=== PATIENT | male | born 2000 | race Two or more races ===

== ENCOUNTER 2018-08-13 15:59 | Emergency (ER) | payer OTHER ==
[~2018-08-13] VITALS: Ht 182.9 cm; Wt 81.6 kg
--- NOTE | 2018-08-13 16:00 | NUR ---
ED Nurse Note: pt walked in w/ lac on right hand-thumb pt states he accidentally cut his hand with glass at work, cms intact, cap refill <3sec , will cont monitor.
[2018-08-13 16:38] VITALS: BP 107/63
--- NOTE | 2018-08-13 16:44 | Emergency Room Report ---
History of Present Illness General Chief Complaint: Laceration Source: Patient Present Illness HPI 17-year-old male presents to the emergency department complaining of laceration with bleeding to localized area of the right palm which she sustained while cleaning a window which broke approximately one hour prior to arrival. Patient denies taking blood thinning medications he states he is not sure whether or not he is up-to-date with his tetanus vaccination. He reports pain is exacerbated with palpation or movements of the right hand. Patient denies loss of gross motor movements or sensation in the affected extremity. Patient denies paresthesias. Allergies: Coded Allergies: No Known Allergies (Unverified , 08/13/18) Patient History Past Medical History: see triage record Past Surgical History: none Pertinent Family History: none Reviewed Nursing Documentation: PMH: Agreed; PSxH: Agreed Nursing Documentation-PMH Past Medical History: No Stated History Review of Systems All Other Systems: negative except mentioned in HPI Physical Exam Vital Signs Date Time Temp Pulse Resp B/P (MAP) Pulse Ox O2 Delivery O2 Flow Rate FiO2 08/13/18 16:03 98.2 66 21 107/63 98 Room Air Medical Decision Making PA Attestation Dr. Galeana is my supervising physician whom pt. management has been discussed with. Diagnostic Impression: Primary Impression: Laceration ER Course 17-year-old male presents to the emergency department complaining of laceration with bleeding to localized area of the right palm which she sustained while cleaning a window which broke approximately one hour prior to arrival. Patient denies taking blood thinning medications he states he is not sure whether or not he is up-to-date with his tetanus vaccination. He reports pain is exacerbated with palpation or movements of the right hand. Patient denies loss of gross motor movements or sensation in the affected extremity. Patient denies paresthesias. Ddx considered but are not limited to laceration, tendon injury, cellulitis, amputation Vital signs: are WNL, pt. is afebrile H&PE are most consistent with: [ ] laceration approx [ ] cm in length ORDERS: none required at this time, the diagnosis is clinical ED INTERVENTIONS: -Tetanus vaccine was administered as pt. vaccination status was unknown. - The wound was copiously irrigated with normal saline, and explored for foreign body for which no FB was found. - pt. is anesthetized with 1%lidocaine w. epi. [ ] deep vycril matress sutures were used to approximate the underlying subcutaneous fat of the open wound. - The wound was approximated and closed using [ ] interrupted [ ] Prolene sutures. -Bacitracin and sterile dressing is applied. Discussed with patient: That we make every effort to approximate the laceration as best as we can so that scarring will be as cosmetically pleasing as possible with our limited cosmetic skill set in the Emergency dept. Regardless of our best efforts there will be scarring after laceration repair. The extent of scarring is unknown at this time. DISCHARGE: At this time pt. is stable for d/c to home. Will provide printed patient care instructions, and any necessary prescriptions. Care plan and follow up instructions have been discussed with the patient prior to discharge. Last Vital Signs Date Time Temp Pulse Resp B/P (MAP) Pulse Ox O2 Delivery O2 Flow Rate FiO2 08/13/18 16:38 98.2 66 16 107/63 100 Room Air Disposition: HOME, SELF-CARE Condition: Stable Departure Forms: Return to Work Return to Work Date: Aug 16, 2018 Work Restrictions: No Heavy Lifting Other Restrictions: limited use of right hand x 1 week. Return to Full Activity: August 20, 2018 Patient Instructions: Laceration Care, Adult Additional Instructions: Take medications as directed. SUTURES TO BE REMOVED IN 10-14 DAYS Follow up with a Primary Care Provider in 3-5 days, even if your symptoms have resolved. --Please review list of primary care clinics, if you do not already have a primary care provider Return sooner to ED if new symptoms occur, or current symptoms become worse. - Please note that this Emergency Department Report was dictated using [employer] carp[employer] technology software, occasionally this can lead to erroneous entry secondary to interpretation by the dictation equipment. Génesis Orlando Aug 13, 2018 16:44
[2018-08-13] MEDS ORDERED: Lidocaine 2% 20mg/ml/EPI 0.01mg/ml 20ml INJ ONE (16:45)
[2018-08-13] MEDS ORDERED: Tetanus/Diptheria/Pertussis IM ONE (17:00)
[2018-08-13] MEDS ORDERED: HYDROcodone/Acetamin 5/325 tab ORAL ONE (17:00)
[2018-08-13] MEDS ORDERED: BACITRACIN-P28.35 GM TP (18:07)
[2018-08-13] MEDS ORDERED: CEPHALEXIN500 MG ORAL (18:07)
[2018-08-13 18:36] VITALS: BP 104/65
--- NOTE | 2018-08-13 18:38 | NUR ---
ED Nurse Note: Plastic surgeon at bedside and performed sutures on the right hand and covered it dressing. MD given instruction on how to take care of the wound. Patient is being discharged from medical care. Patient awake, alert, oriented x 4. D/C instruction and prescriptions given to patient. Patient ambulated out with steady gait.
--- NOTE | 2018-08-15 22:30 | Consultation ---
DATE OF CONSULTATION: 08/13/2018 PLASTIC SURGERY CONSULTATION CONSULTING PHYSICIAN: Dakota Caldwell M.D. CHIEF COMPLAINT: Right palm laceration. HISTORY OF PRESENT ILLNESS: The patient is a 17-year-old right-hand dominant male who suffered a laceration to the right hand at the base of the thumb. The patient reports that he was cleaning a window at work when the glass broke, sustaining a laceration to the palm of the right hand. The patient presented to [facility] following the injury. The patient was seen and evaluated by emergency physician and found to have an isolated injury to the right hand. Plastic surgery was consulted for further management. PAST MEDICAL HISTORY: None. PAST SURGICAL HISTORY: None. ALLERGIES: No known drug allergies. FAMILY HISTORY: Noncontributory. OCCUPATIONAL HISTORY: The patient works construction. REVIEW OF SYSTEMS: Negative except as mentioned in history of present illness. PHYSICAL EXAMINATION: VITAL SIGNS: Afebrile. Vital signs stable. GENERAL: Alert, awake, oriented x3. EXTREMITIES: Examination of the patient's right hand reveals 3 cm laceration on the palm at the base of the right thumb over the thenar eminence. It is a curvilinear laceration between the palmar crease and proximal thumb flexion crease. There is no active bleeding noted at this time. The thumb motion is intact throughout with intact flexion and extension, abduction, adduction, and thumb opposition. The flexor digitorum superficialis and flexor digitorum profundus tendons are intact throughout all digits. Sensation is intact throughout as well. IMAGING: X-ray of the right hand revealed no bony or joint abnormalities. There were no identified foreign bodies. ASSESSMENT: The patient is a 17-year-old right-hand dominant male with a laceration of the thenar eminence on the palmar surface of the right hand. The patient was informed about his injury and the indication for irrigation and suture repair of the right hand laceration site. PLAN: Irrigation of the right hand laceration site followed by suture closure. Please see procedure note for complete details. Following repair of the right palm laceration, the bandage dressing was applied. The patient was given antibiotics and instructed to follow up next week in clinic for re-evaluation. Dakota Caldwell M.D. DR: William JOB#: [id number] CC:
--- NOTE | 2018-08-15 22:45 | Procedure Note ---
DATE OF PROCEDURE: 08/13/2018 PREOPERATIVE DIAGNOSIS: Right hand laceration. POSTOPERATIVE DIAGNOSIS: Right hand laceration (3 cm). PROCEDURE PERFORMED: Irrigation and closure of right hand thenar eminence laceration (3 cm). SURGEON: Dakota Caldwell MD. OPERATIVE FINDINGS: The patient had a curvilinear full-thickness laceration of the right palm over the thenar eminence between the palmar crease and proximal thumb flexion crease. COMPLICATIONS: None. ANESTHESIA: 1% plain lidocaine. DESCRIPTION OF PROCEDURE: After injecting the laceration site with 1% plain lidocaine, the right hand thenar eminence laceration site was thoroughly irrigated with saline and Betadine. After allowing adequate time for anesthesia, the right thenar eminence laceration site was further evaluated. Exploration revealed no retained foreign bodies within the wound. The laceration site was reapproximated and closed with simple interrupted 4-0 nylon sutures and placed along the length of the laceration site. In total, the laceration measured 3 cm. Following suture repair of the laceration site, bacitracin ointment and an Adaptic dressing were placed over the laceration repair site. The right palm thenar eminence was covered with sterile 4x4s followed by a Mukund wrap, held in place with an Phil wrap. The patient was instructed to follow up in clinic in one week for re-evaluation. Dakota Caldwell M.D. DR: SAGE JOB#: [id number] CC:
== END 2018-08-13 18:41 | disposition home or self-care (01) ==
LOC: EMR 16:30
DX: S61.411A Laceration without foreign body of right hand, initial encounter (principal); W25.XXXA Contact with sharp glass, initial encounter; Y93.E9 Activity, other interior property and clothing maintenance; Y92.410 Unspecified street and highway as the place of occurrence of the external cause; Z23 Encounter for immunization
CPT/HCPCS: 90471; 90715; 99283